=== PATIENT | female | born 1960 | race Caucasian/White ===

== ENCOUNTER 2018-06-28 19:06 | Emergency (ER) | payer SELFPAY ==
[~2018-06-28] VITALS: Ht 157.5 cm; Wt 67.1 kg
[2018-06-28 19:28] VITALS: Ht 157.5 cm; Wt 67.1 kg
[2018-06-28 20:11] LABS: BASOPHIL % 0.4 % (0-2); PLATELET COUNT 296 x10^3mcL (130-400); RED CELL DISTRIBUTION WIDTH 16.3 % (11.5-14.5)
[2018-06-28 20:29] LABS: ALKALINE PHOSPHATASE 147 U/L (46-116); ALT/SGPT 20 U/L (14-59); AST/SGOT 12 U/L (15-37); BILIRUBIN TOTAL 0.3 mg/dL (0.20-1.00); CALCIUM 9.5 mg/dL (8.5-10.1); CARBON DIOXIDE 27.6 mmol/L (21-32); CHLORIDE SERUM 95 mmol/L (98-107); CREATININE SERUM 0.9 mg/dL (0.6-1.0); GFR1 > 60 mL/min; POTASSIUM SERUM 4.3 mmol/L (3.5-5.1); SODIUM SERUM 131 mmol/L (136-145)
[2018-06-28 20:42] LABS: ALBUMIN 3.3 g/dL (3.4-5.0); TOTAL PROTEIN, SERUM 8.9 g/dL (6.4-8.2)
[2018-06-28 20:43] LABS: GLUCOSE SERUM 466 mg/dL (74-106)
[2018-06-28 22:54] LABS: microscopic required? YES
[2018-06-28 22:55] LABS: urine erythrocyte TRACE (NEGATIVE)
[2018-06-28 23:12] VITALS: BP 154/63
== END 2018-06-28 23:12 | disposition home or self-care (01) ==
LOC: ED 19:06
PROVIDERS: Emergency Medicine
DX: E11.65 Type 2 diabetes mellitus with hyperglycemia (principal); I10 Essential (primary) hypertension; E78.00 Pure hypercholesterolemia, unspecified; M19.90 Unspecified osteoarthritis, unspecified site; Z88.8 Allergy status to other drugs, medicaments and biological substances
CPT/HCPCS: 82962; J1815; J7030